=== PATIENT | male | born 1970 | race Caucasian/White ===

== ENCOUNTER 2017-06-23 15:09 | Emergency (ER) | payer OTHER ==
[~2017-06-23] VITALS: Ht 180.3 cm; Wt 113.0 kg
[~2017-06-23 15:09] MED LIST: FLEXERIL10 MG PO; METHADONE 22 MG/1 ML PO; METHADOSE40 MG PO; NAPROSYN500 MG PO
[2017-06-23 15:20] VITALS: BP 151/86
[2017-06-23] MEDS ORDERED: MOTRIN800 MG PO (16:36)
== END 2017-06-23 16:53 | disposition home or self-care (01) ==
LOC: EME 15:09
DX: S80.11XA Contusion of right lower leg, initial encounter (principal); W18.30XA Fall on same level, unspecified, initial encounter; Z88.0 Allergy status to penicillin; F17.200 Nicotine dependence, unspecified, uncomplicated
CPT/HCPCS: 73590; 99281; 99284